=== PATIENT | male | born 1985 | race Caucasian/White ===

== ENCOUNTER 2020-11-10 14:49 | Emergency (ER) | payer OTHER ==
[~2020-11-10] VITALS: Ht 177.8 cm; Wt 157.9 kg
[2020-11-10] MEDS ORDERED: CLONAZEPAM1 MG PO (15:36)
[2020-11-10] MEDS ORDERED: HYDROCHLOROTHIA25 MG PO (15:58)
[2020-11-10] MEDS ORDERED: VENTOLIN HFA18 GM INH (15:58)
[2020-11-10] MEDS ORDERED: CALCIUM 600 +1 EAC8 PO (15:58)
[2020-11-10] MEDS ORDERED: LEVOTHYROXINE50 MC1 PO (15:59)
[2020-11-10] MEDS ORDERED: RIZATRIPTAN10 MG PO (16:00)
[2020-11-10] MEDS ORDERED: LISINOPRIL20 MG PO (16:00)
[2020-11-10] MEDS ORDERED: TRIAMCINOLONE A80 GM TOP (16:01)
[2020-11-10] MEDS ORDERED: ALLER-CORT16.9 ML NS (16:02)
[2020-11-10] MEDS ORDERED: VERAPAMIL ER240 MG PO (16:02)
--- NOTE | 2020-11-12 13:57 | EKG ---
[facility] [address] [facility] [place], [place] [address] Signed Normal sinus rhythm Nonspecific intraventricular block Possible Inferior infarct , age undetermined Abnormal ECG No previous ECGs available Confirmed by PATRICIA ANAYA DO ([id number]) on 11/12/2020 1:57:28 PM Electronically Signed By: PATRICIA ANAYA DO 11/12/20 1357 PATIENT NAME: KENDALL BARNES Electrocardiogram DATE OF : 81 PHYSICIAN: PATRICIA ANAYA DO REPORT #: [id number] REPORT IS CONFIDENTIAL AND NOT TO BE RELEASED WITHOUT AUTHORIZATION
== END 2020-11-10 18:26 | disposition home or self-care (01) ==
LOC: ED 14:49
DX: R07.9 Chest pain, unspecified (principal); K42.9 Umbilical hernia without obstruction or gangrene; I25.2 Old myocardial infarction; Z87.891 Personal history of nicotine dependence; Z88.8 Allergy status to other drugs, medicaments and biological substances; Z79.899 Other long term (current) drug therapy
CPT/HCPCS: 71045; 76705; 80053; 83735; 84484; 85025; 93005; 93010; 99285-25